=== PATIENT | female | born 1945 | race Caucasian/White ===

== ENCOUNTER 2017-12-21 11:26 | Observation (INO) | payer MEDICARE, OTHER ==
[~2017-12-21] VITALS: Ht 144.8 cm; Wt 105.2 kg
--- OUTSIDE RECORDS SUMMARY | ~2017-12-21 | XMS | Clinical Summary ---
Demographics + + + | Address | [address] [place] | | | [place] [address] | + + + | Home Phone | | + + + | Preferred Language | Unknown | + + + | Marital Status | | + + + | Latter-Day Affiliation | 1027 | + + + | Race | Unknown | + + + | Ethnic Group | Unknown | + + + Author + + + | Author | [facility] | | | and [place] | + + + | Organization | [facility] | | | and [place] | + + + | Address | Unknown | + + + | Phone | Unavailable | + + + Support + + + + + | Name | Relationship | Address | Phone | + + + + + | Liza Ortiz | ECON | [address] | | | | | [place], | | | | | [place] [address] | | + + + + + | Asif Ortiz | ECON | [address] | | | | | [place], | | | | | [place] [address] | | + + + + + Care Team Providers + +------+ + | Care Writer Editor Name | Role | Phone | + +------+ + | Matt Rothman | PP | | | MD | | | + +------+ + Allergies + + + + + + | Active Allergy | Reactions | Severity | Noted | Comments | | | | | Date | | + + + + + + | Abel Inhibitors | Other (See Comments) | | 07/21/20 | cough | | | | | 13 | | + + + + + + | Meloxicam | Hives, Rash | Low | 07/21/20 | | | | | | 13 | | + + + + + + | Penicillins | Shortness Of Breath | High | 07/21/20 | | | | | | 13 | | + + + + + + Current Medications + + +-------+---------+------+------+-------+ | Prescription | Sig. | Disp. | Refills | Star | End | Statu | | | | | | t | Date | s | | | | | | Date | | | + + +-------+---------+------+------+-------+ | Ibuprofen (ADVIL) | Take by mouth. | | | | | Activ | | 200 MG CAPS | | | | | | e | + + +-------+---------+------+------+-------+ | aspirin 81 mg EC | Take 81 mg by mouth | | | | | Activ | | tablet | Daily. | | | | | e | + + +-------+---------+------+------+-------+ | olmesartan | Take 5 mg by mouth | | | | | Activ | | (BENICAR) 5 MG | Daily. | | | | | e | | tablet | | | | | | | + + +-------+---------+------+------+-------+ | vitamin E 1000 | Take 1,000 Units by | | | | | Activ | | units capsule | mouth Daily. | | | | | e | + + +-------+---------+------+------+-------+ | Multiple Vitamin | Take by mouth. | | | | | Activ | | (MULTI-VITAMIN) TABS | | | | | | e | + + +-------+---------+------+------+-------+ | omeprazole | Take 20 mg by mouth | | | | | Activ | | (PRILOSEC) 20 mg | every morning | | | | | e | | capsule | (before breakfast). | | | | | | + + +-------+---------+------+------+-------+ | zoledronic acid | Inject 5 mg into the | | | | | Activ | | (RECLAST) 5 mg/100 | vein once. | | | | | e | | mL SOLN | | | | | | | + + +-------+---------+------+------+-------+ | | Take 1 tablet by | | | | | Activ | | triamterene-hydrochl | mouth Daily. | | | | | e | | orothiazide | | | | | | | | (MAXZIDE-25) 37.5-25 | | | | | | | | mg per tablet | | | | | | | + + +-------+---------+------+------+-------+ | cholecalciferol | Take 1,000 Units by | | | | | Activ | | (VITAMIN D-3) 1,000 | mouth Daily. | | | | | e | | units tablet | | | | | | | + + +-------+---------+------+------+-------+ | | Take by mouth | | | | | Activ | | Glucosamine-Chondroi | Daily. | | | | | e | | tin (MOVE FREE PO) | | | | | | | + + +-------+---------+------+------+-------+ | losartan (COZAAR) | | | 3 | 09/ | | Activ | | 100 MG tablet | | | | 2/20 | | e | | | | | | 17 | | | + + +-------+---------+------+------+-------+ Active Problems No known active problems Encounters +--------+ + + + + | Date | Type | Specialty | Care Team | Description | +--------+ + + + + | 12/17/ | Telephone | | Tushar Narayanan, | Paperwork (Notes for | | 2018 | | | DO | Lady to Review) | +--------+ + + + + from Last 3 Months Family History + + +------+ + | Medical History | Relation | Name | Comments | + + +------+ + | No Known Problems | Brother | | | + + +------+ + | No Known Problems | Child | | | + + +------+ + | No Known Problems | Daughter | | | + + +------+ + | Diabetes | Father | | | + + +------+ + | Heart disease | Father | | | + + +------+ + | High blood pressure | Father | | | + + +------+ + | Stroke | Father | | | + + +------+ + | No Known Problems | Maternal | | | | | Grandfath | | | | | er | | | + + +------+ + | No Known Problems | Maternal | | | | | Grandmoth | | | | | er | | | + + +------+ + | Cancer | Maternal | | | | | Uncle | | | + + +------+ + | Parkinsonism | Mother | | Lewy Body Dementia | + + +------+ + | No Known Problems | Paternal | | | | | Grandfath | | | | | er | | | + + +------+ + | No Known Problems | Paternal | | | | | Grandmoth | | | | | er | | | + + +------+ + | No Known Problems | Sister | | | + + +------+ + + +------+ + + | Relation | Name | Status | Comments | + +------+ + + | Brother | | | | + +------+ + + | Child | | | | + +------+ + + | Daughter | | Alive | | + +------+ + + | Father | | | | | | | (Age | | | | | 89) | | + +------+ + + | Maternal Grandfather | | | | + +------+ + + | Maternal Grandmother | | | | + +------+ + + | Maternal Uncle | | | | + +------+ + + | Mother | | | CLOSED HEAD INJURY | | | | (Age | | | | | 78) | | + +------+ + + | Paternal Grandfather | | | | + +------+ + + | Paternal Grandmother | | | | + +------+ + + | Sister | | | | + +------+ + + Social History + + + +--------+ + | Tobacco Use | Types | Packs/Day | Years | Date | | | | | Used | | + + + +--------+ + | Former Smoker | Cigarettes | 1 | 19 | Quit: 08/31/1988 | + + + +--------+ + + +---+---+---+ | Smokeless Tobacco: | | | | | Never Used | | | | + +---+---+---+ + + +---------+ + | Alcohol Use | Drinks/We | oz/Week | Comments | | | ek | | | + + +---------+ + | No | | | | + + +---------+ + + + + | Sex Assigned at | Date Recorded | | | | + + + | Not on file | | + + + Last Filed Vital Signs + + + + | Vital Sign | Reading | Time Taken | + + + + | Blood Pressure | 118/61 | 08/07/2017908 PST | + + + + | Pulse | 93 | 08/07/2017908 PST | + + + + | Temperature | - | - | + + + + | Respiratory Rate | 18 | 07/21/2013 1527 PST | + + + + | Oxygen Saturation | - | - | + + + + | Inhaled Oxygen | - | - | | Concentration | | | + + + + | Weight | 104.6 kg (230 lb 8 | 08/07/2017908 PST | | | oz) | | + + + + | Height | 144.8 cm (4' 9") | 08/07/2017908 PST | + + + + | Body Mass Index | 49.88 | 08/07/2017908 PST | + + + + Plan of Treatment + + + + + | Health Maintenance | Due Date | Last Done | Comments | + + + + + | Hepatitis C | | | | | Screening | 7 | | | + + + + + | Vaccine: | | | | | Dtap/Tdap/Td (1 - | 6 | | | | Tdap) | | | | + + + + + | BREAST CANCER | | | | | SCREENING (MAMM Q2 | 7 | | | | YEARS 50-74) | | | | + + + + + | COLON CANCER | | | | | SCREENING | 7 | | | | (COLONOSCOPY EVERY | | | | | 10 YEARS 50-75) | | | | + + + + + | Vaccine: | | | | | Pneumococcal 65+ | 2 | | | | Low/Medium Risk (1 | | | | | of 2 - PCV13) | | | | + + + + + | Vaccine: Influenza | | | | | (Season Ended) | 8 | | | + + + + + Results Not on filefrom Last 3 Months Insurance + +--------+ +--------+ +---------+ | Payer | Benefi | Subscriber | Type | Phone | Address | | | t Plan | ID | | | | | | / | | | | | | | Group | | | | | + +--------+ +--------+ +---------+ | MEDICARE | MEDICA | xxxxxxxxxx | Medica | [phone]-- | | | | RE | | re | 555 | | | | PART A | | | | | | | AND B | | | | | + +--------+ +--------+ +---------+ | [employer] [place] | [place] | xxxxxxxx | [place] | [phone] | | | | OF | | ity | 1000 | | | | [place] | | | | | | | MDCR | | | | | | | SUPPL | | | | | + +--------+ +--------+ +---------+ + +--------+ +--------+ + + | Guarantor Name | Accoun | Relation to | Date | Phone | Billing Address | | | t Type | Patient | of | | | | | | | | | | + +--------+ +--------+ + + | AMINTA ORTIZ | Person | Self [birth year] Home: | [address] | | | al/Fam | | 1945 | [phone] | [place] [address] | | | yandel | | | [phone] | | + +--------+ +--------+ + +
--- OUTSIDE RECORDS SUMMARY | ~2017-12-21 | XMS | Clinical Summary ---
Demographics + + + | Address | [address] | | | [place] [address] | + + + | Home Phone | | + + + | Preferred Language | Unknown | + + + | Marital Status | | + + + | Zoroastrian Affiliation | 1027 | + + + | Race | Unknown | + + + | Ethnic Group | Unknown | + + + Author + + + | Author | [facility] | | | and [place] | + + + | Organization | [facility] | | | and [place] [...] [place], | | | | | [place] [address] | | + + + + + | Asif Ortiz | ECON | [address] | | | | | [place], | | | | | [place] [address] | | + + + + + Care Team Providers + +------+ + | Care Ultrasound Technologist Name | Role | Phone | + [...] + +--------+ +--------+ +---------+ | [employer] [place] | [place] | xxxxxxxx | [place] | [phone] | | | | OF | | ity | [address] | | | | [place] | | | | | | | [...] | 1945 | [phone] | [place] [address] | | | yandel | | | [phone] | | + +--------+ +--------+ + +
--- OUTSIDE RECORDS SUMMARY | ~2017-12-21 | XMS | Clinical Summary ---
Demographics + + + | Address | [address] | | | [place] [address] | + + + | Home Phone | | + + + | Preferred Language | Unknown | + + + | Marital Status | | + + + | Islam Affiliation | 1027 | + + + | Race | Unknown | + + + | Ethnic Group | Unknown | + + + Author + + + | Author | [facility] | | | and [place] | + + + | Organization | [facility] | | | and [place] | [...] [place], | | | | | [place] [address] | | + + + + + | Asif Ortiz | ECON | [address] | | | | | [place], | | | | | [place] [address] | | + + + + + Care Team Providers + +------+ + | Care Logistics Service Representative Name | Role | Phone | + [...] + +--------+ +--------+ +---------+ | [employer] [place] | [place] | xxxxxxxx | [place] | [phone] | | | | OF | | ity | [address] | | | | [place] | | | | | | | [...] | 1945 | [phone] | [place] [address] | | | yandel | | | [phone] | | + +--------+ +--------+ + +
--- OUTSIDE RECORDS SUMMARY | ~2017-12-21 | XMS | Encounter Summary ---
Demographics + + + | Address | [address] | | | [place] [address] | + + + | Home Phone | | + + + | Preferred Language | Unknown | + + + | Marital Status | | + + + | Mormonism Affiliation | 1027 | + + + | Race | Unknown | + + + | Ethnic Group | Unknown | + + + Author + + + | Author | [facility] | | | and [place] | + + + | Organization | [facility] | | | and [place] | + + + | Address | Unknown | + + + | Phone | Unavailable | + + + Support + + + + + | Name | Relationship | Address | Phone | + + + + + | Liza Huynh | ECON | [address] | | | | | [place], | | | | | [place] [address] | | + + + + + | Asif Huynh | ECON | [address] | | | | | [place], | | | | | [place] [address] | | + + + + + Care Team Providers + +------+ + | Care Speech Therapy Teacher Name | Role | Phone | + +------+ + | Matt Rothman PCP | | | MD | | | + +------+ + Reason for Visit + + + | Reason | Comments | + + + | Paperwork | Notes for Lady to Review | + + + Encounter Details +--------+ + + + + | Date | Type | Department | Care Team | Description | +--------+ + + + + | 12/17/ | Telephone | [facility] | Tushar Narayanan, | Paperwork (Notes for | | 2017 | | NEUROSURGERY [address] | DO [address] | Lady to Review) | | | | [address] | [address] [place], | | | | | [place] | [place] [address] | | | | | [address] | [phone] | | | | | [phone] | | | +--------+ + + + + Social History + + + [...] on file | | + + + as of this encounter Plan of Treatment Not on fileas of this encounter Visit Diagnoses Not on filein this encounter"
--- OUTSIDE RECORDS SUMMARY | ~2017-12-21 | XMS | Encounter Summary ---
Demographics + + + | Address | [address] | | | [place] [address] | + + + | Home Phone | | + + + | Preferred Language | Unknown | + + + | Marital Status | | + + + | Anabaptist Affiliation | 1027 | + + + | Race | Unknown | + + + | Ethnic Group | Unknown | + + + Author + + + | Author | [facility] | | | and [place] | + + + | Organization | [facility] | | | and [place] [...] [place], | | | | | [place] [address] | | + + + + + | Asif Huynh | ECON | [address] | | | | | [place], | | | | | [place] [address] | | + + + + + Care Team Providers + +------+ + | Care Veneer Clipper Helper Name | Role | Phone | + [...] + + | 12/17/ | Telephone | [facility] | Tushar Narayanan, | Paperwork (Notes for | | 2017 | | NEUROSURGERY [address] | DO [address] | Lady to Review) | | | | [address] | [address] [place], | | | | | [place] | [place] [address] | | | | | [address] | [phone] | | | | | [phone] | | | +--------+ + + + [...]
--- OUTSIDE RECORDS SUMMARY | ~2017-12-21 | XMS | Encounter Summary ---
Demographics + + + | Address | [address] | | | [place] [address] | + + + | Home Phone | | + + + | Preferred Language | Unknown | + + + | Marital Status | | + + + | Yazdanism Affiliation | 1027 | + + + | Race | Unknown | + + + | Ethnic Group | Unknown | + + + Author + + + | Author | [facility] | | | and [place] | + + + | Organization | [facility] | | | and [place] [...] [place], | | | | | [place] [address] | | + + + + + | Asif Huynh | ECON | [address] | | | | | [place], | | | | | [place] [address] | | + + + + + Care Team Providers + +------+ + | Care Mill Turner Name | Role | Phone | + [...] + + | 12/17/ | Telephone | [facility] | Tushar Narayanan, | Paperwork (Notes for | | 2017 | | NEUROSUR[address]ERY [address] | DO [address] | Lady to Review) | | | | [address] | [address] [place], | | | | | [place] | [place] [address] | | | | | [address] | [phone] | | | | | [phone] | | | +--------+ + + + [...]
[~2017-12-21 11:26] MED LIST: ASPIRIN EC81 MG PO; BENICAR5 MG PO; CENTRUM SILVER1 EAC3 PO; MOVE FREE ULTR1 EACH PO; OMEPRAZOLE20 MG PO; VITAMIN D1000 UNIT PO; VITAMIN E400 UNI1 PO
[2017-12-21] MEDS ORDERED: COZAAR100 MG PO (11:43)
--- NOTE | 2017-12-21 17:00 | NUR ---
ED REPORT FROM STEFAN SOL E.D.
--- NOTE | 2017-12-21 17:30 | NUR ---
PT ARRIVED TO ROOM 112. PT ALERT AND ORIENTED, HOYERED WITH GREEN SHEET TO ROOM BED. PT TOELRATED WELL WITH INCREASE PAIN, IMPROVED WITH REST.
--- NOTE | 2017-12-21 18:52 | NUR ---
PT REPORTS ACCEPTABLE PAIN 6/10, PT 5MG OXYCODONE GIVEN AT THIS TIME. WITH PUDDING. CURRENT PAIN LEVEL 8/10 RIGHT LOWER BACK AND HIP
--- NOTE | 2017-12-21 19:05 | NUR ---
RECEIVED REPORT FROM DAY SHIFT RN. PATIENT IS RESTING IN BED VISITING WITH FAMILY. PATIENT DENIES ANY NEEDS AT THIS TIME. CALL LIGHT IN REACH. FAMILY AT THE BEDSIDE.
--- NOTE | 2017-12-21 21:40 | NUR ---
PATIENT ASSSEMENT COMPLETED. PATIENT GIVEN EVENING MEDICATIONS PER ORDER. PATIENT RATES PAIN AT A 4/10. PATIENT DENIES ANY NEED FOR PAIN MEDICATION PER ORDER. PATIENT ASSISTED TO THE BSC. PATIENT ASSISTED A 2PA PIVOT TRANSFER TO THE BEDSIDE COMMODE. PATIENT TOLERATED ACTIVITY WELL. PATIENT WAS ABLE TO VOID. PATIENT IS NOW BACK IN BED RESTING. PATIENT DENIES ANY FURTHER NEEDS. CALL LIGHT IN REACH. FAMILY AT THE BEDSIDE.
--- NOTE | 2017-12-21 23:53 | NUR ---
PATIENT REPOSTIIONED. PATIENT NOW HAS A PILLOW UNDER HER LEFT HIP. PATIENT RATES PAIN AT A 5/10. PATIENT DENIES THE NEED FOR PAIN MEDICATIONS. PATIENT DENIES ANY OTHER NEEDS. FAMILY HAS LEFT FOR THE EVENING. CALL LIGHT IN REACH.
--- NOTE | 2017-12-22 00:03 | NUR ---
PATIENT REPOSITIONED TO HAVE PILLOW UNDER HER RIGHT HIP PER REQUEST. PATIENT DENIES ANY FURTHER NEEDS. CALL LIGHT IN REACH.
--- NOTE | 2017-12-22 02:00 | NUR ---
PATIENT REPOSITIONED. PATIENT RATES PAIN AT A 6/10. PATIENT DENIES THE NEED FOR PAIN MEDICATION AT THIS TIME. NO FURTHER NEEDS NOTED. CALL LIGHT IN REACH.
--- NOTE | 2017-12-22 02:45 | NUR ---
PATIENT ASSISTED TO THE [facility] [place] A 2P PIVOT TRANSFER. PATIENT WAS ABLE TO VOID. PATIENT RATES PAIN AT A 6/10. PATIENT DENIES THE NEED FOR PAIN MEDICATION AT THIS TIME. PATIENT IS BACK IN BED RESTING. VITALS TAKEN AND RECORDED. NO FURTHER NEEDS NOTED. CALL LIGHT IN REACH.
--- NOTE | 2017-12-22 04:44 | NUR ---
PATIENT IS RESTING IN BED WITH EYES CLOSED. BREATHING IS EVEN AND UNLABORED, RR 17. CALL LIGHT IN REACH.
--- NOTE | 2017-12-22 05:04 | NUR ---
PATIENT RESTED WELL THROUGHOUT THE LATER PART OF THE SHIFT. PATIENT IS ON A CARDIAC DIET WITH A 2000 CALORIE LIMIT. PATIENT REQUIRES EDUCATION ABOUT DIET. PATIENT IS A 2PA, PIVOT TRANSFER TO [facility] [place] PAITENT IS PAINFUL WITH MOVEMENT. PAITENT IS SL AND IV FLUSHES WELL. PAITENT RECEIVED X1 PRN PAIN MEDICATION PER ORDER. PATIENT IS AAOX3 AND USES CALL LIGHT APPROPRIATELY. PATIENT WILL HAVE A PT/OT EVAL TODAY.
--- NOTE | 2017-12-22 05:40 | NUR ---
PATIENT REPOSITIONED IN BED. PATIENT IS ON HER HIGH LEFT SIDE. PATIENT RATES PAIN AT AN 8/10. PRN PAIN MEDICATION GIVEN PER ORDER. PATIENT DENIES ANY FURTHER NEEDS. CALL LIGHT IN REACH.
--- NOTE | 2017-12-22 07:39 | NUR ---
BEDSIDE REPORT FROM JULIA SOL. PT REPORTS HER PAIN IS GOOD 6.5-7/10 THIS AM. SHE IS READY FOR BREAKFAST.
--- NOTE | 2017-12-22 07:52 | NUR ---
PATIENT SITTING UP IN BED EATING BREAKFAST. PATIENT GIVEN WARM WASH CLOTH TO WASH HANDS AND FACE WITH. PATIENT STATED SHE DID NOT FEEL WELL ENOUGH TO GET UP FOR A SHOWER TODAY, BUT MAYBE A BED BATH NEXT TIME SHE WAS UP. ORAL CARE SET UP ON BEDSIDE TABLE FOR PATIENT TO USE AFTER BREAKFAST. CLEAN GOWN SET OUT BY BEDSIDE COMMODE FOR PATIENT TO CHANGE INTO NEXT TIME SHE IS UP. BED BATH WIPES IN BATHROOM. CALL LIGHT IN REACH. NO OTHER NEEDS AT THIS TIME.
--- NOTE | 2017-12-22 08:50 | NUR ---
PT REPORTS HER PAIN IS TOLERABLE AT THIS TIME AND DENIES NEED FOR PAIN COVERAGE, WILL CONTINUE TO MONITOR FOR INCREASED PAIN. PT CONSUMED 100 OF BREAKFAST.
--- NOTE | 2017-12-22 10:03 | NUR ---
PT REQUESTED PAIN MEDICATION BEDFORE WORKING WITH PHYSICAL THERAPY, THIS IS GIVEN AND THEN PT [facility] COM[facility] AT [facility]
--- NOTE | 2017-12-22 11:19 | NUR ---
PT RESTING IN BED. ADMINSITERED COLACE. PT REQUESTED CHOCOLATE PUDDING, THIS RN REMINDED PT THAT LUNCH WOULD BE HER SOON. PT SAID "OK, I WILL JUST GO BACK TO SLEEP" NO OTHER CONCERNS PT REPORTS PAIN IS WELL TOLERATED AT THIS TIME
[2017-12-22] MEDS ORDERED: OMEPRAZOLE20 MG PO (11:46)
--- NOTE | 2017-12-22 11:47 | NUR ---
MED REC COMPLETE WITH SAFEWAY RECORDS AND PATIENT INTERVIEW.
--- NOTE | 2017-12-22 13:20 | NUR ---
PATIENT IN BED TALKING ON CELL PHONE.
--- NOTE | 2017-12-22 13:49 | NUR ---
PATIENT IS IN BED TALKING ON HER CELL PHONE.
--- NOTE | 2017-12-22 13:55 | NUR ---
PATIENT BACK TO BED WITH STAND BY ASSIST. CALL BUTTON IN REACH. NO OTHER NEEDS AT THIS TIME.
--- NOTE | 2017-12-22 13:59 | NUR ---
PATIENT RESTING IN BED ON PHONE. PATIENT REFUSED ORAL CARE AT THIS TIME. CALL BUTTON IN REACH. NO OTHER NEEDS AT THIS TIME.
[2017-12-22] MEDS ORDERED: TRIAMTERENE-HC1 EAC1 PO (14:39)
--- NOTE | 2017-12-22 16:21 | NUR ---
PT UP TO BEDSIDE COMMODE PT REPORTS FOOT SLIPPED AND PAIN INCREASED. PT RATES 8/10 PAIN 10MG OXYCODONE ADMINISTERED NOW PRN
--- NOTE | 2017-12-22 18:18 | NUR ---
PT HAS REPORTED TO BE PAINFUL THROUGHOUT SHIFT IMPROVES WITH PAIN MEDICATIONS, PAIN INCREASES WITH ACTIVITY. ONE PERSON ASSIST TO BEDSIDE COMMODE. PAIN IS LOWER BACK/RIGHT HIP. SHE IS TOLERATING REGULAR DIET WELL. REQUESTS EXTRA SNACKS FREQUENTLY. SNACKS ONLY GIVEN WITH PAIN MEDICATIONS.
--- NOTE | 2017-12-22 19:15 | NUR ---
RECEIVED REPORT FROM DAY SHIFT RN. PATIENT IS RESTING IN BED WATCHING TV. NO NEEDS NOTED. CALL LIGHT IN REACH.
--- NOTE | 2017-12-22 21:43 | NUR ---
PATIENT ASSESMENT COMPLETED. PATIENTS EVENING MEDICATIONS GIVEN PER ORDER. PATIENT RATES PAIN AT A 6/10. PATIENT DENIES THE NEED FOR PAIN MEDICATION AT THIS TIME. PATIENT REPOSITIONED IN BED. PATIENTS VITALS TAKEN AND RECORDED. PATIENT ASSISTED EARLIER BY COOLER SERVICER TO THE RESTROOM A 1PA [address] INTO THE RESTROOM. PATIENTS FAMILY IS AT THE BEDSIDE. NO FURTHER NEEDS NOTED. CALL LIGHT IN REACH.
--- NOTE | 2017-12-22 23:31 | NUR ---
PATIENT ALERTED STAFF THAT SHE WAS HAVING CHEST PAIN/TIGHTNESS FROM BACK TO FRONT. PATIENTS VITALS ASSESED AND RECORDED. PATIENT SAT UP IN BED. YOUTH PROGRAM DIRECTOR VERMAEboni PANDEY. EKG ORDERED AND PERFORMED. NORMAL EKG RECORDED. PLACED CALL BACK TO MD. NO NEW ORDERS AT THIS TIME. PATIENT IS SITTING UP IN HIGH FOWLERS. PATIENT DENIES ANY NEEDS AT THIS TIME. CALL LIGHT IN REACH.
--- NOTE | 2017-12-23 00:03 | NUR ---
ASSISTED PATIENT TO THE BATHROOM AND BACK TO BED USING WALKER. PATIENT PREFERS DANGLING BY THE BED AT THE MOMENT. CALL LIGHT WITHIN REACH. NURSE NOTIFIED.
--- NOTE | 2017-12-23 00:13 | NUR ---
REASSESSED PATIENTS VITALS. VITALS WNL. PATIENT DENIES CHEST PAIN AT THIS TIME. PATIENT REPOSITIONED IN BED. WILL CONTINUE TO MONITOR. PATIENT DENIES ANY NEEDS AT THIS TIME. CALL LIGHT WITHIN REACH.
--- NOTE | 2017-12-23 01:41 | NUR ---
PATIENT RESPOSITIONED IN BED. PATIENT DENIES ANY FURTHER NEEDS AT THIS TIME. CALL LIGHT IN REACH.
--- NOTE | 2017-12-23 03:54 | NUR ---
PATIENT IS RESTING IN BED WITH EYES CLOSED. RR 17. CALL LIGHT IN REACH.
--- NOTE | 2017-12-23 05:02 | NUR ---
PATIENT RESTED WELL THROUGHOUT THE SHIFT. PATIENT IS A 1PA AND HAS BENJAMIN AMBULATING TO THE RESTROOM. PATIENT IS ON A CARDIAC DIET. PATINET IS SL AND IV FLUSHES WELL. PATIENT IS AAOX3.
--- NOTE | 2017-12-23 05:58 | NUR ---
PATIENT ASSISTED TO THE RESTROOM. PATIENT IS A SBA. PATIENT TOLERATED AMBULATION WELL. PATIENT RATES PAIN AT A 5/10. PATIENT DENIES THE NEED FOR PAIN MEDICATION AT THIS TIME. PATIENT DENIES ANY FURTHER NEEDS. CALL LIGHT IN REACH.
--- NOTE | 2017-12-23 07:36 | EKG ---
[facility] [address] [place], [place] [address] Signed Normal sinus rhythm Normal ECG No previous ECGs available Confirmed by PARIS PANDEY MD ([id number]) on 12/23/2017 7:35:48 AM Electronically Signed By: PARIS PANDEY MD 12/23/17 0736 PATIENT NAME: GALI ORTIZ Electrocardiogram DATE OF : 49 PHYSICIAN: PARIS PANDEY MD REPORT #: [id number] REPORT IS CONFIDENTIAL AND NOT TO BE RELEASED WITHOUT AUTHORIZATION
--- NOTE | 2017-12-23 09:07 | NUR ---
PATIENT UP TO SHOWER. LINENS CHANGED. PATIENT REFUSED ORAL CARE AT THIS TIME. PATIENT BACK TO CHAIR WITH STANDBY ASSIST WITH FWW. PATIENT SET UP WITH BREAKFAST. WARM BLANKET GIVEN. CALL BUTTON IN REACH. NO OTHER NEEDS AT THIS TIME.
--- NOTE | 2017-12-23 09:30 | NUR ---
PATIENT SITTING UP IN CHAIR WITH FAMILY IN ROOM. CALL BUTTON IN REACH. NO OTHER NEEDS AT THIS TIME.
--- NOTE | 2017-12-23 09:49 | NUR ---
PATIENT STATES THAT PAIN IS NOT CHANGED AT THIS TIME, SHE IS GOING TO WAIT 15 MORE MINUTES FOR THE PILL TO BE EFFECTIVE AND CALL IF HER PAIN LEVEL HAS NOT CHANGED.
--- NOTE | 2017-12-23 10:06 | NUR ---
PATIENT UP AMBULATING IN THE HALLWAY WITH PHYSICAL THERAPY, NO WALKER USED WHEN AMBULATING.
--- NOTE | 2017-12-23 10:17 | NUR ---
NO CHANGE IN PATIENT'S PAIN AFTER WORKING WITH PHYSICAL THERAPY, PATIENT GIVEN A SECOND 5MG TABLET PO AT THIS TIME. PATIENT FINISHED WITH PHYSICAL THERAPY, STAIRS DONE.
--- NOTE | 2017-12-23 10:44 | NUR ---
PATIENT GIVEN 2 SMALL CUPS OF PRUNE JUICE AND A SUPPOSITORY GIVEN AT THIS TIME. PATIENT UP TO THE BATHROOM WITH STANDBY ASSIST
--- NOTE | 2017-12-23 11:45 | NUR ---
PATIENT UP TO BATHROOM HAD EXTRA SMALL SOFT BM. PATIENT STATES SHE FEELS LIKE SHE HAS A BIG BM NEEDING TO COME OUT. PATIENT BACKT TO BED WITH CALL BUTTON AND WARM BLANKET. NO OTHER NEEDS AT THIS TIME.
--- NOTE | 2017-12-23 11:55 | NUR ---
PATIENT REFUSED MIRALAX AT THIS TIME, SHE STATES THAT SHE IS GIVING UP ON HAVING A BM TODAY. PATIENT WAS ABLE TO PASS A VERY SMALL STOOL WHILE UP TO THE BATHROOM THE LAST TIME.
--- NOTE | 2017-12-23 13:01 | NUR ---
PT JUST RETURNED FROM P.T. SHE SEEMS SOMEWHAT WINDED. HER COUSIN IS IN TO VISIT. SAID KRISTAL, AND TOLD HER I WOULD CHECK BACK LATER-LET THEM HAVE SOME TIME TOGETHER. PT SMILED AND THANKED ME.
--- NOTE | 2017-12-23 13:04 | NUR ---
THIS HR RECEPTIONIST ASSISTED PATIENT FROM BATHROOM BACK TO BEDSIDE. PATIENT BEGAN COMPLAINING OF CHEST PAIN. PATIENT LAYING DOWN RESTING. PATIENT STATES PAIN IS A SHARP STABBING PAIN APPROXIMATELY IN THE CENTER OF HER CHEST. PATIENT PLACES PAIN AT AN 11 OUT OF 10. RN NOTIFIED.
--- NOTE | 2017-12-23 13:10 | NUR ---
PATIENT HAS C/O CHEST PAIN, VITALS TAKEN AND PATIENT GIVEN PROTONIX IV AT THIS TIME. DOCTOR KATHERIN IS AWARE AND ADVISED RN TO GIVEN PROTONIX IV.
--- NOTE | 2017-12-23 13:17 | NUR ---
PATIENT COMPLAINED ABOUT CHEST PAIN. VITAL TAKEN BY [address] AND REPORTED TO RN. PATIENT IN BED BLECHING. CALL BUTTON IN REACH.
--- NOTE | 2017-12-23 13:44 | NUR ---
PATIENT HAD A LOOSE BM IN THE TOILET, MIGUEL CARE DONE BY THE RN AT THIS TIME. SHE HAS NO C/O CHEST PAIN AT THIS TIME. PATIENT AMBULATES TO BED WITHOUT ANY ASSISTANCE AND IS STEADY ON HER FEET.
[2017-12-23] MEDS ORDERED: OXYCODONE HCL5 MG PO (14:33)
== END 2017-12-23 14:50 | disposition home or self-care (01) ==
LOC: ED 11:26 → MS 11:29
PROVIDERS: ADMIT Internal Medicine
DX: M54.5 Low back pain (principal); G89.29 Other chronic pain; K59.00 Constipation, unspecified; M43.16 Spondylolisthesis, lumbar region; E89.0 Postprocedural hypothyroidism; I10 Essential (primary) hypertension; Z79.82 Long term (current) use of aspirin; Z79.899 Other long term (current) drug therapy; Z87.891 Personal history of nicotine dependence; Z88.0 Allergy status to penicillin; Z88.8 Allergy status to other drugs, medicaments and biological substances; Z68.43 Body mass index [BMI] 50.0-59.9, adult
CPT/HCPCS: 51701; 72100; 72148; 80048; 81001; 85025; 93005; 93010; 96374; 96375; 97110; 97163; 99285; G0378; G8978; G8979; G8980; J1100; J1885; J3010; J3360; J7040

== ENCOUNTER 2018-01-07 16:09 | Emergency (ER) | payer MEDICARE, OTHER ==
[~2018-01-07] VITALS: Ht 149.9 cm; Wt 98.9 kg
[~2018-01-07 16:09] MED LIST changes: +COZAAR100 MG PO; +OXYCODONE HCL5 MG PO; +TRIAMTERENE-HC1 EAC1 PO
[2018-01-07] MEDS ORDERED: METHYLPREDNISOLO4 M1 PO (17:56)
[2018-01-07] MEDS ORDERED: BACLOFEN10 MG PO (17:56)
[2018-01-07] MEDS ORDERED: NORCO 10-325 T1 EACH PO (17:56)
== END 2018-01-07 18:35 | disposition home or self-care (01) ==
LOC: ED 16:09
DX: M54.5 Low back pain (principal); I10 Essential (primary) hypertension; E03.9 Hypothyroidism, unspecified; Z87.891 Personal history of nicotine dependence; Z88.0 Allergy status to penicillin; Z88.8 Allergy status to other drugs, medicaments and biological substances; Z79.82 Long term (current) use of aspirin; Z79.899 Other long term (current) drug therapy
CPT/HCPCS: 81001; 96374; 96375; 99283; J1100; J1885